=== PATIENT | male | born 1955 | race Caucasian/White ===

== ENCOUNTER 2025-06-12 12:41 | Emergency (ER) | payer MEDICARE, SELFPAY ==
[2025-06-12 12:42] VITALS: BP 139/72; PULSE 77; RESP 14; TEMP 36.6; O2SAT 95; BMI 44.7
--- NOTE | 2025-06-12 13:00 | EX.ED.DYSGE1 ---
HPI <DEISI Rae - Last Filed: 06/12/25 15:45> History of Present Illness Chief Complaint: Lower Extremity Injury Narrative Narrative: 70-year-old male presents with acute on chronic right knee pain. He had a right knee replacement in 2020 in 2022 both at [facility]. He had a fracture preceding both surgeries. He has chronic pain in the right knee especially with walking or mowing the lawn. He is on tramadol and gabapentin for his back through [facility] pain management. The right knee pain became more severe last night around the patella and shot down his leg. No weakness or numbness or tingling. No recent fall or injury. He usually ambulates with a cane. He is here for a second opinion before he goes back to the orthopedic doctor. PFSH <DEISI Rae - Last Filed: 06/12/25 15:45> PFSH Allergy/AdvReac Type Severity Reaction Status Date / Time No Known Allergies Allergy Verified 06/12/25 12:42 Social History Smoking Status: Never smoker ROS <DEISI Rae - Last Filed: 06/12/25 15:45> ROS ED ROS Narrative Neuro: Negative for motor/sensory dysfunction. Skin: Negative for rash, abscess, or wound. Musc: Positive for right knee pain. No swelling or trauma. EXAM <DEISI Rae - Last Filed: 06/12/25 15:45> Physical Exam Narrative Exam Narrative: CONST: Patient sitting in no acute distress. EYES: Normal inspection. NECK: Normal inspection. RESP: No respiratory distress, CTAB. CVS: Regular rate and rhythm, no murmur, no gallop. SKIN: Color normal, no rash, warm, dry, intact. EXTREMITIES: Healed bilateral midline knee incisions. Very minimal tenderness over the right patella and lateral joint line. No effusion, warmth, or skin changes. Full range of motion. 5/5 strength in hip flexion, knee flexion/extension, and DF/PF. Normal sensation. 2+ PT pulse. Negative anterior posterior drawer and varus and valgus stress. NEURO: Alert and answering questions appropriately. PSYCH: Normal affect. Const Vital Signs: 06/12/25 12:42 Temperature 98 F Temperature Source Temporal Pulse Rate 77 Respiratory Rate 14 Blood Pressure 139/72 H Blood Pressure Mean 94 Pulse Ox 95 Oxygen Delivery Method Room Air <Dr. Osmany Reddy DO - Last Filed: 06/12/25 19:31> Physical Exam Const Vital Signs: 06/12/25 12:42 Temperature 98 F Temperature Source Temporal Pulse Rate 77 Respiratory Rate 14 Blood Pressure 139/72 H Blood Pressure Mean 94 Pulse Ox 95 Oxygen Delivery Method Room Air [facility] <DEISI Rae - Last Filed: 06/12/25 15:45> [facility] Narrative Medical decision making narrative: History gathered from: Patient and Differential: Fracture, sprain Consults: Discussed with radiology 70-year-old male with history of 2 traumatic right knee replacements most recently in 2022 presents with a flareup of right knee pain felt more severe than usual. No new injury. Lower extremities appear normal and he has full range of motion and is neurovascular intact. There is no knee effusion. He has no systemic signs of illness or redness or warmth so not concern for a septic joint. He has no signs of instability on exam. X-ray shows no acute findings. I called the radiologist and discussed with Dr. Staton to make sure the bony abnormalities of the distal femur are chronic and he states it is from the old fracture, nothing acute. Patient is ambulatory and has assistive devices if needed. He was counseled to follow-up with orthopedics and was discharged in stable condition. Radiography Diagnostic Testing: Clinical Impression(s) from Imaging Studies Knee X-Ray 06/12/25 13:05 IMPRESSION: Status post total knee replacement. There is good alignment. No acute abnormality is seen. Reading Location: [facility] ED attending interpretation of right knee shows knee arthroplasty intact, chronic appearing fracture in the distal femur, no acute fracture. <Dr. Osmany Reddy DO - Last Filed: 06/12/25 19:31> [facility] Narrative Medical decision making narrative: History gathered from: Patient and Differential: Fracture, sprain Consults: Discussed with radiology 70-year-old male with history of 2 traumatic right knee replacements most recently in 2022 presents with a flareup of right knee pain felt more severe than usual. No new injury. Lower extremities appear normal and he has full range of motion and is neurovascular intact. There is no knee effusion. He has no systemic signs of illness or redness or warmth so not concern for a septic joint. He has no signs of instability on exam. X-ray shows no acute findings. I called the radiologist and discussed with Dr. Staton to make sure the bony abnormalities of the distal femur are chronic and he states it is from the old fracture, nothing acute. Patient is ambulatory and has assistive devices if needed. He was counseled to follow-up with orthopedics and was discharged in stable condition. Supervisory Physician Note Patient was seen and examined with the Advanced Practice Provider. Nursing notes and vital signs have been reviewed. Pertinent old records have been reviewed. I agree with the essential elements of the JB's history, physical exam, assessment, and plan. The differential diagnosis and management options were discussed with the JB. I participated in determining and agree with the management, procedures, final impression and disposition as documented. See changes noted by me. Please see addendum or separate note for any additional details. 70-year-old male presents for evaluation of acute on chronic right knee pain. History of replacement in the right knee as well as fracture with revision. Pain increased last night. Denies any current trauma. Denies any weakness, numbness, tingling. I agree with the physical exam listed above. X-rays of the knee were obtained. This was personally reviewed and interpreted by me, ED physician. Chronic appearing fracture in the distal femur. Knee arthroplasty. Patient able to ambulate in the emergency department. Follow-up with orthopedics. No clear etiology for his acute on chronic knee pain. Patient stable for discharge home. Impression: 1. Acute on chronic right knee pain 2. History of total right knee replacement and previous fracture Radiography Diagnostic Testing: Clinical Impression(s) from Imaging Studies Knee X-Ray 06/12/25 13:05 IMPRESSION: Status post total knee replacement. There is good alignment. No acute abnormality is seen. Reading Location: [id number] Discharge Plan Triage Chief Complaint: Lower Extremity Injury ED Midlevel Provider: Shira Holt ED Provider: Osmany Reddy Dx/Rx/DC Orders Clinical Impression: Acute pain of right knee, History of total right knee replacement Instructions: Knee Pain, ED RICE Primary Care Provider: [facility] Doctor,Out of Referrals: Hira Ward, [Med Staff - Active Staff] - [facility] Doctor,Out of [Primary Care Provider] - Activity Restrictions/Additional Instructions: The x-ray of the right knee appears normal with your hardware intact. I am not sure what caused her increased pain. I recommend you ice and take Tylenol or Motrin as needed and follow-up with your orthopedic doctor. I also provided the phone number for the [facility] if needed. Print Language: Tanzanian Disposition Disposition: Home, Self Care Discharge Date/Time: 06/12/25 13:35
--- NOTE | 2025-06-12 13:05 | RAD_ITS ---
PROCEDURE: KNEE 4 OR MORE VIEWS 06/12/2025 REASON FOR EXAM: PAIN Right knee pain. TECHNIQUE: Four views of the knee were obtained. Laterality: Right COMPARISON: None FINDINGS: The patient is status post total knee replacement of the constrained type. There is good alignment. Mild soft tissue swelling. RAD/Knee 4 or More Views IMPRESSION: Status post total knee replacement. There is good alignment. No acute abnormality is seen. Reading Location: [facility]
== END 2025-06-12 13:35 | disposition home or self-care (01) ==
PROVIDERS: Emergency Provider Surgery; Visit Provider Surgery
DX: M25.561 Pain in right knee (principal); G89.29 Other chronic pain; Z79.891 Long term (current) use of opiate analgesic; Z96.651 Presence of right artificial knee joint
CPT/HCPCS: 73564; 99282